=== PATIENT | female | born 1990 | race Caucasian/White ===

== ENCOUNTER → 2018-09-06 | Outpatient (REF) | payer OTHER | LOC: M LAB REF 17:50 | DX: Z12.4 Encounter for screening for malignant neoplasm of cervix (principal) ==

== ENCOUNTER → 2020-02-21 | Outpatient (REF) | payer OTHER ==
[2020-02-21 18:31] LABS: HEMATOCRIT 40.1 % (36.0-47.0); HEMOGLOBIN 12.9 g/dl (12.0-15.5); MEAN CORPUSCULAR HEMOGLOBIN 28.2 pg (27.0-33.0); MEAN CORPUSCULAR HGB CONC 32.2 g/dl (32.0-36.5); MEAN CORPUSCULAR VOLUME 87.7 fl (80.0-96.0); PLATELET COUNT, AUTOMATED 249 10^3/uL (150-450); RED BLOOD COUNT 4.57 10^6/uL (4.00-5.40); WHITE BLOOD COUNT 11.8 10^3/uL (4.0-10.0)
[2020-02-21 20:19] LABS: CHLAMYDIA DNA AMPLIFICATION NEGATIVE (NEGATIVE); GC DNA AMPLIFICATION NEGATIVE (NEGATIVE)
[2020-02-22 11:57] LABS: HIV 1&2 SCREEN CENTAUR NEGATIVE (NEGATIVE); RUBELLA IgG QUALITATIVE IMMUNE (IMMUNE)
[2020-02-23 08:55] LABS: HEPATITIS B SURFACE ANTIGEN NEGATIVE (NEGATIVE)
== END ==
LOC: M PLALAB 15:21
PROVIDERS: ATTEND Advanced Practice Midwife
DX: Z34.01 Encounter for supervision of normal first pregnancy, first trimester (principal)

== ENCOUNTER → 2020-05-23 | Outpatient (CLI) | payer BC, OTHER ==
--- NOTE | 2020-05-24 03:20 | REP ---
REASON: anatomy. PRIORS: None. Multiple ultrasonographic images of the gravid uterus show a single living intrauterine gestation in the cephalic presentation. Doppler interrogation of the heart shows a heart rate of 153 beats per minute. The placenta is posterior and not low lying. The cervix measures 3.5 cm in length and is closed. The subjective amniotic fluid volume is within normal limits. Evaluation of the maternal adnexal spaces showed no abnormalities. CHART: BPD 4.9 cm = 20 weeks 6 days HC 18.5 cm = 20 weeks 6 days AC 16.3 cm = 21 weeks 2 days FL 3.5 cm = 21 weeks 1 day The estimated weight is 408 grams, which is at the 65th percentile for a 20-week 5-day gestational age. anatomical structures seen as unremarkable are as follows: Thalami, cavum septum pellucidum, upper lip, four-chamber heart, right and left ventricular outflow tracts, stomach, cord insertion, three-vessel umbilical cord, kidneys, urinary bladder, spine, and upper and lower extremities. The posterior fossa/cerebellum were suboptimally visualized. IMPRESSION: Single living intrauterine gestation, as described above, with an estimated gestational age of 21 weeks 1 day via composite criteria and an estimated date of delivery of 10/02/2020 by today's exam. No anomalies were detected; however, I recommend a followup examination to better visualize the posterior fossa. Electronically Signed by Kel Marcano DO 05/24/2020 09:13 A
== END ==
LOC: M RAD 14:52
PROVIDERS: ATTEND Obstetrics & Gynecology
DX: Z34.92 Encounter for supervision of normal pregnancy, unspecified, second trimester (principal); Z3A.20 20 weeks gestation of pregnancy

== ENCOUNTER → 2020-06-25 | Outpatient (CLI) | payer BC ==
--- NOTE | 2020-08-09 07:04 | REP ---
FOLLOWUP OBSTETRIC ULTRASOUND FOR EVALUATION OF POSTERIOR FOSSA DATE: 06/25/2020. NOTE: Delay in reporting results from malfunction of the hospital computer system as a result of a malware attack. COMPARISON: 12/24/2019. The posterior intracranial fossa could not be optimally demonstrated on the prior study. The remainder of the anatomy was previously unremarkable. FINDINGS: On the study today, there is a single intrauterine gestation. The fetus is in a cephalic presentation. The placenta is posterior. The placenta is grade 1. There is no previa or abruptio. The umbilical cord insertion on the placenta is located centrally. The umbilical cord insertion on the fetus is unremarkable. The intracranial posterior fossa is adequately demonstrated and unremarkable on the study today. The cardiac right and left ventricular outflow tracts are not optimally demonstrated today, but were optimally seen previously and were unremarkable. The remainder of the anatomy is unremarkable today and was unremarkable previously. The composite estimated gestational age by the ultrasound today is 26 weeks, 0 days EDC is 10/01/2020. Estimated weight is 920 grams, this is the 78th percentile. Subjectively, the amniotic fluid volume is normal. Cervix measures 3.2 cm in length. No additional ultrasound evaluation is requested or performed at this time. [facility]
== END ==
LOC: M WHC 06:11
PROVIDERS: ATTEND Advanced Practice Midwife
DX: Z34.02 Encounter for supervision of normal first pregnancy, second trimester (principal); Z36.2 Encounter for other antenatal screening follow-up; Z3A.26 26 weeks gestation of pregnancy

== ENCOUNTER → 2020-09-13 | Outpatient (REF) | payer OTHER | LOC: M SFHCWAGY 16:44 | PROVIDERS: ATTEND Specialist | DX: Z34.03 Encounter for supervision of normal first pregnancy, third trimester (principal); Z3A.00 Weeks of gestation of pregnancy not specified ==

== ENCOUNTER → 2020-09-23 | Outpatient (REF) | payer OTHER | LOC: M PLALAB 14:42 | PROVIDERS: ATTEND Obstetrics & Gynecology | DX: Z3A.38 38 weeks gestation of pregnancy (principal) ==

== ENCOUNTER 2020-09-30 07:13 | Inpatient (IN) | payer BC, OTHER ==
[2020-09-30] VITALS (45 sets, daily range): BP systolic 89–134; BP diastolic 45–82
[~2020-09-30] VITALS: Ht 170.2 cm; Wt 101.6 kg
[2020-09-30] MEDS ORDERED: LACTATED RINGER'S 1000 ML IV STA (07:46)
--- NOTE | 2020-09-30 08:07 | HPEPDOC ---
Obstetrical History & Physical General Date of Admission Sep 30, 2020 at 07:46 History of Present Illness Edilma is a 29yo with SIUP at 39w2d by lmp c/w 7wk u/s presenting for regula r painful ctx. She called last night when ctx were 6-8min apart and encouraged to wait until they were closer and stronger. She states overnight they have become very regular and much more painful. No gush of fluid, no vaginal bleeding. Good movement. 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 ABDOMEN: Gravid and non-tender to touch. FETUS: Is vertex (VTX) by sterile vaginal examination (SVE) EXTREMITIES: No edema of BLE Laboratory Data 24H LABS Laboratory Tests 2 09/30/20 07:49: Serology Scanned Report Hepatitis B Testing Pertinent Laboratoy Data Blood Type: A+ RBC Antibody Screen: Negative HIV: Negative Hepatitis B: Negative Hepatitis C: Negative Rapid Plasma Reagin: Nonreactive Rubella: Immune Chlamydia/Gonorrhea: Negative Group B Streptococcus: Negative Glucose Tolerance Test: 103 Anatomy Ultrasound Ultrasound Date: Jun 25, 2020 Placenta Location: Posterior Normal Anatomy: Yes Placenta Previa: No Steroid Therapy Steroid Therapy: No Vaginal Examination Dilation: 5 cm Effacement: 90% Station: -2 Cervical Consistency: Soft Cervical Position: Anterior Presentation: Cephalic presentation Assessment Heart Rate (FHR): 120 Variability: Moderate Accelerations: Positive Decelerations: None Tocometer Contractions: Yes Frequency: regular, every 2-5 min. Duration: greater than 60 seconds Strength: palpated as moderate Assessment/Plan Assessment Edilma is a 29yo with SIUP at 39w2d by lmp c/w 7wk u/s in active labor with SCE 5/90/-2, ctx q2-3min and painful. Cat I FHRT. GBS negative. Uncomplicated PMhx and PNC. Vitals wnl, benign exam. Plan Admit and orient. Dining Room Supervisor and consent. Diet: regular for breakfast Group B Streptococcus (GBS) negative Labs and intravenous (IV) per unit protocol. Counseled on Pitocin and induction of labor (IOL). Lactated Ringers (LR): Bolus 800 mL, then at 125 mL/hr. Anticipate normal spontaneous delivery () Safe to proceed MD Rena Finney Katrina D MD Sep 30, 2020 08:07
[2020-09-30 08:38] LABS: HEMATOCRIT 38.7 % (36.0-47.0); HEMOGLOBIN 12.2 g/dl (12.0-15.5); MEAN CORPUSCULAR HEMOGLOBIN 26.2 pg (27.0-33.0); MEAN CORPUSCULAR HGB CONC 31.5 g/dl (32.0-36.5); PLATELET COUNT, AUTOMATED 230 10^3/uL (150-450); RED BLOOD COUNT 4.66 10^6/uL (4.00-5.40); WHITE BLOOD COUNT 16.1 10^3/uL (4.0-10.0)
[2020-09-30] MEDS ORDERED: FENTANYL 2MCG/ML ROPIVACAINE 0.2% IN 0.9% NACL 100ML IVBAG As Ordered ONE (09:35)
[2020-09-30] MEDS: FENTANYL/ROPIVACAINE/NACL BAG 100 ML EPIDURAL SCH ×2 (10:10→18:44)
[2020-09-30] MEDS: LR 1,000 ML IV SCH ×2 (10:22→14:54)
[2020-09-30] MEDS ORDERED: ePHEDrine SULFATE 25 MG/5 ML(5MG/ML) SYRINGE IV PRN (11:30)
[2020-09-30] MEDS ORDERED: EPIDURAL/PCA KEYS XX PRN (11:30)
[2020-09-30] MEDS ORDERED: LACTATED RINGER'S 1000 ML IV PRN (11:30)
[2020-09-30] MEDS ORDERED: ONDANSETRON 4MG/2ML VIAL IV PRN (11:30)
[2020-09-30] MEDS ORDERED: diphenhydrAMINE 50MG/ML VIAL (J1200) IV PRN (11:30)
[2020-09-30] MEDS ORDERED: REFRIGERATOR IV KEYS XX PRN (11:30)
[2020-09-30] MEDS ORDERED: NALOXONE INJ 0.4MG/1ML VIAL (J2310 PER 1MG) IV PRN (11:30)
[2020-09-30] MEDS ORDERED: EPIDURAL COMMENT XX SCH (11:30)
[2020-09-30] MEDS ORDERED: OXYTOCIN 30 UNITS IN 0.9% NaCl 500ML IV BAG (J2590) As Ordered ONE (12:35)
[2020-09-30] MEDS ORDERED: OXYTOCIN DRIP 30 UNITS in IV 1 EA IV SCH ×2 (13:45→20:58)
--- NOTE | 2020-09-30 14:06 | IPNPDOC ---
Obstetrical Progress Note Date of Service Sep 30, 2020 Subjective Patient reports that she is comfortable with her epidural running. States she feels wet. Objective Vital Signs Date Time Temp Pulse Resp B/P (MAP) Pulse Ox O2 Delivery O2 Flow Rate FiO2 09/30/20 10:37 69 16 103/54 (70) 09/30/20 09:48 98.1 Assessment Heart Rate (FHR): 130 Variability: Moderate Accelerations: Positive Decelerations: None Heart Rate Tracing: Category I Tocometer Contractions: Yes Frequency: irregular, other (6-8 min) Duration: greater than 60 seconds Strength: palpated as mild, resting tone palp/soft Sterile Vaginal Examination Dilation: 8 cm Effacement (%): 100% Station: -1 Cervical Consistency: Soft Cervical Position: Anterior Postion/Presentation: Cephalic presentation Assessment and Plan Age: 29 : 1 Term: 0 Pre-term: 0 Abortions: 0 Livin EGA at Admission: 39.2 Status: Reassuring Group B Streptococcus: Negative Anticipate: Vaginal Delivery Additional Comments Small amount of clear appearing fluid noted on bed pads on examination. AROM for moderate amount of meconium stained fluid. Start Pitocin for inadequate contraction pattern. SAVANNA CAVAZOS CNM Sep 30, 2020 14:06
--- NOTE | 2020-09-30 16:53 | IPNPDOC ---
Obstetrical Progress Note Date of Service Sep 30, 2020 Subjective Comfortable with epidural, denies feeling pressure or urge to push. Objective Vital Signs Date Time Temp Pulse Resp B/P (MAP) Pulse Ox O2 Delivery O2 Flow Rate FiO2 09/30/20 15:44 57 16 120/61 (80) 09/30/20 09:48 98.1 Assessment Heart Rate (FHR): 135 Variability: Moderate Accelerations: None Decelerations: Prolonged (One prolonged decel noted while vomitting, returned with position change, currently category 1) Heart Rate Tracing: Category I Tocometer Contractions: Yes Frequency: regular, every 2-5 min. Duration: greater than 60 seconds, less than 90 seconds Strength: palpated as mild/moderate, resting tone palp/soft Sterile Vaginal Examination Dilation: 8 cm (8-9) Effacement (%): 100% Station: -1 Cervical Consistency: Soft Cervical Position: Anterior Postion/Presentation: Cephalic presentation Assessment and Plan Age: 29 : 1 Term: 0 Pre-term: 0 Abortions: 0 Livin EGA at Admission: 39.2 Status: Reassuring Group B Streptococcus: Negative Anticipate: Vaginal Delivery Additional Comments Zofran given for vomiting, with good effect. Pitocin at 6mu/min. Continue with Pitocin augmentation Continuous EFM. SAVANNA CAVAZOS CNM Sep 30, 2020 16:53
--- NOTE | 2020-09-30 18:26 | IPNPDOC ---
Obstetrical Progress Note Date of Service Sep 30, 2020 Subjective Reports feeling increased pressure, used PCEA on epidural pump and currently comfortable. Objective Vital Signs Date Time Temp Pulse Resp B/P (MAP) Pulse Ox O2 Delivery O2 Flow Rate FiO2 09/30/20 17:44 98.4 67 16 111/64 (80) Assessment Heart Rate (FHR): 150 Variability: Moderate Accelerations: Positive Decelerations: None Heart Rate Tracing: Category I Tocometer Contractions: Yes Frequency: regular, every 1-3 min. Sterile Vaginal Examination Dilation: 9 cm (Anterior Lip) Effacement (%): 100% Station: 0 (0 to +1) Cervical Consistency: Soft Cervical Position: Anterior Postion/Presentation: Cephalic presentation Assessment and Plan Age: 29 : 1 Term: 0 Pre-term: 0 Abortions: 0 Livin EGA at Admission: 39.2 Status: Reassuring Group B Streptococcus: Negative Anticipate: Vaginal Delivery Additional Comments Pitocin at 10mu/min. Continue with Pitocin Continuous EFM per policy. SAVANNA CAVAZOS CNM Sep 30, 2020 18:26
[2020-09-30] MEDS ORDERED: RHOGAM 300 MCG (1500 IU) INJ (J2790) IM SCH (21:00)
[2020-09-30] MEDS ORDERED: DIBUCAINE 1% OINTMENT 30GM TOP PRN (21:00)
[2020-09-30] MEDS ORDERED: METHYLERGONOVINE MALEATE 0.2 MG TAB PO PRN (21:00)
[2020-09-30] MEDS ORDERED: IBUPROFEN 600MG TAB PO PRN (21:00)
[2020-09-30] MEDS ORDERED: MEASLES,MUMPS,RUBELLA VACCINE INJ (MMR-II) (90707) SC SCH (21:00)
[2020-09-30] MEDS ORDERED: ACETAMINOPHEN 500 MG TAB PO PRN (21:00)
[2020-09-30] MEDS ORDERED: DOCUSATE SODIUM 100 MG CAP PO PRN (21:00)
[2020-09-30] MEDS ORDERED: ANUSOL HC CREAM 30GM TOP PRN (21:00)
[2020-09-30] MEDS ORDERED: ACETAMINOPHEN TAB 650MG DOSE (2X325MG) PO PRN (21:00)
--- NOTE | 2020-09-30 21:20 | DNPDOC ---
[facility] Delivery Note Delivery Note DATE OF DELIVERY: 09/30/20 @ 2026 PREDELIVERY DIAGNOSIS: 39-2/7 weeks' gestation and labor. POST DELIVERY DIAGNOSIS: Delivered. PROCEDURE: Spontaneous vaginal delivery. LICENSED AIRCRAFT MAINTENANCE ENGINEER: Savanna Smith CNM, ARABELLA; NEISHA Bashir ANESTHESIA: Epidural. ESTIMATED BLOOD LOSS: 200 mL. FINDINGS: 7 pound 9ounce, 3420g, Female , Score 7/9, meconium stained fluid. DELIVERY SUMMARY: Patient is a 29-year-old 1 now para 1-0-0-1 who was admitted to labor and delivery for active labor. She received an epidural for labor pain management this morning and continued to progress. Pitocin was started for inadequate contraction pattern and AROM at 1354 for moderate meconium. She became fully dilated at 1912 and began pushing. head delivered in OA with restitution to ROT, anterior shoulder delivered with ease then corpus followed. Infant placed skin to skin on maternal abdomen. Delayed cord clamping until pulsations stopped and was clamped x2 and cut by FOB. 3 vessel cord noted. Placenta delivered intact at 2032. Fundal massage and Pitocin bolus was started. Fundus firmed at umbilicus, with moderate flow, clots swept from cervix and flow slowed to small amount. Vagina, perineum, and cervix were examined for lacerations. Small 1st degree perineal laceration was repaired with 3.0 Vicryl Rapide, with good approximation and hemostasis. Sharps and sponges counted and correct. Mother plans to breastfeed and name her "Gwen Fernández". Mother and infant left in stable condition. SAVANNA SMITH CNM Sep 30, 2020 21:20
[2020-10-01 05:36] VITALS: BP 118/62
--- NOTE | 2020-10-01 06:45 | IPNPDOC ---
Progress Note Date of Service: Oct 01, 2020 Day#: 1 Progress Note SUBJECT: Edilma is a 29-year-old 1 now Para 1-0-0-1 status post uncomplicated spontaneous vaginal delivery at 39-2/7 weeks' with post vaginal laceration and repair, doing well day # 1. She has been ambulating, voiding spontaneously without issue and tolerating regular diet. Breast feeding without issue. Reports lochia is like a normal period. Pain well controlled with Tylenol and Motrin. OBJECTIVE: VITAL SIGNS: Within normal limits, afebrile. General: Alert and oriented times three. Respiratory: Regular rate, no accessory muscle use. Abdomen: Fundus firm at U-1. Soft, NTTP. Extremities: No edema, no calf tenderness. Minimal lochia. ASSESSMENT: Day 1. PLAN: 1. Tylenol and Motrin for pain. 2. Encourage breast feeding and ambulation. 3. Patient may shower. 4. Discharge home tomorrow. VS, I&O, 24H, Fishbone Vital Signs/I&O Vital Signs Date Time Temp Pulse Resp B/P (MAP) Pulse Ox O2 Delivery O2 Flow Rate FiO2 10/01/20 05:36 97.6 79 17 118/62 (80) 97 Room Air I&O- Last 24 Hours up to 6 AM 10/01/20 06:00 Intake Total 3609 ml Output Total 1675 ml Balance 1934 ml Laboratory Data 24H LABS Laboratory Tests 2 09/30/20 07:49: Serology Scanned Report Hepatitis B Testing 09/30/20 08:05: Nucleated Red Blood Cells % (auto) 0.0, Syphilis Serology NONREACTIVE CBC/BMP Laboratory Tests 09/30/20 08:05 SAVANNA CAVAZOS CNM Oct 01, 2020 06:45
[2020-10-01] MEDS: PRENATAL VITAMINS CHEWABLE TABLET PO SCH (08:37)
[2020-10-01] MEDS: IBUPROFEN 800 MG TAB PO PRN ×2 (08:38→17:26)
[2020-10-01 18:00] VITALS: BP 126/70
[2020-10-02 05:29] VITALS: BP 120/73
[2020-10-02] MEDS: IBUPROFEN 800 MG TAB PO PRN (09:02)
[2020-10-02] MEDS: PRENATAL VITAMINS CHEWABLE TABLET PO SCH (09:02)
--- NOTE | 2020-10-02 09:03 | IPNPDOC ---
Progress Note Date of Service: Oct 02, 2020 Progress Note SUBJECT: Status post . She has been ambulating, voiding spontaneously without issue and tolerating regular diet. Lochia decreasing/minimal. Patient is ambulating well. OBJECTIVE: VITAL SIGNS: Within normal limits, afebrile. Alert and oriented times three. Abdomen: Fundus firm at U-2. Soft, NTTP. ASSESSMENT: Status post uncomplicated spontaneous vaginal delivery. Vitals within normal limits, afebrile, hemodynamically stable with no evidence of infection. PLAN: Discharge to home today. Tylenol and Motrin for pain. Routine instructions/precautions reviewed. Routine PP visit in 6 weeks in clinic. VS, I&O, 24H, Fishbone Vital Signs/I&O Vital Signs Date Time Temp Pulse Resp B/P (MAP) Pulse Ox O2 Delivery O2 Flow Rate FiO2 10/02/20 05:29 97.6 59 17 120/73 (89) 98 Room Air ETHEL HERMAN DO Oct 02, 2020 09:03
== END 2020-10-02 11:20 | disposition home or self-care (01) | DRG 560 ==
LOC: M LDO 07:13 → M LDI 07:46 → M OBS 22:40
PROVIDERS: ADMIT Advanced Practice Midwife; ATTEND Advanced Practice Midwife
PROC: 10E0XZZ Delivery of Products of Conception, External Approach (ICD-10-PCS; principal; 2020-09-30)
PROC: 0HQ9XZZ Repair Perineum Skin, External Approach (ICD-10-PCS; 2020-09-30)
PROC: 10907ZC Drainage of Amniotic Fluid, Therapeutic from Products of Conception, Via Natural or Artificial Opening (ICD-10-PCS; 2020-09-30)
DX: O77.0 Labor and delivery complicated by meconium in amniotic fluid (principal); Z3A.39 39 weeks gestation of pregnancy; O70.0 First degree perineal laceration during delivery; Z37.0 Single live birth

== ENCOUNTER → 2023-12-02 | Outpatient (CLI) | payer BC, OTHER ==
[2023-12-02 15:39] LABS: HEMATOCRIT 33.7 % (36.0-47.0); HEMOGLOBIN 10.9 g/dl (12.0-15.5); MEAN CORPUSCULAR HGB CONC 32.3 g/dl (32.0-36.5); MEAN CORPUSCULAR VOLUME 83.4 fl (80.0-96.0); PLATELET COUNT, AUTOMATED 218 10^3/uL (150-450); RED BLOOD COUNT 4.04 10^6/uL (4.00-5.40); WHITE BLOOD COUNT 13.3 10^3/uL (4.0-10.0)
[2023-12-02 16:01] LABS: TOTAL PROTEIN,RANDOM URINE 12.2 MG/DL (0.0-14.0)
[2023-12-02 16:05] LABS: LDH LACTATE DEHYDROGENASE 180 U/L (120-246)
[2023-12-02 16:06] LABS: ALT/SGPT 9 U/L (7.0-40); AST/SGOT 11 U/L (<34); BILIRUBIN,TOTAL 0.3 MG/DL (0.3-1.2); CREATININE FOR GFR 0.56 MG/DL (0.55-1.30); GLOMERULAR FILTRATION RATE > 60.0 (>60)
== END ==
LOC: M PLALAB 14:41
PROVIDERS: ATTEND Obstetrics & Gynecology
DX: O16.9 Unspecified maternal hypertension, unspecified trimester (principal); Z3A.00 Weeks of gestation of pregnancy not specified

== ENCOUNTER → 2023-12-17 | Outpatient (REF) | payer BC, OTHER | LOC: M SFHCWAGY 16:39 | PROVIDERS: ATTEND Advanced Practice Midwife | DX: Z34.83 Encounter for supervision of other normal pregnancy, third trimester (principal) ==

== ENCOUNTER 2024-01-06 16:18 | Inpatient (IN) | payer BC, OTHER ==
[2024-01-06] VITALS (17 sets, daily range): BP systolic 111–181; BP diastolic 58–118
[~2024-01-06] VITALS: Ht 172.7 cm; Wt 100.3 kg
[2024-01-06] MEDS ORDERED: UNIS25TA3 PO (16:39)
[2024-01-06] MEDS ORDERED: ACET-897 PO (16:39)
[2024-01-06] MEDS ORDERED: TUMS500C PO (16:39)
[2024-01-06] MEDS ORDERED: OMEP10CASR PO (16:39)
[2024-01-06] MEDS ORDERED: PRENTAB9 PO (16:39)
[2024-01-06] MEDS ORDERED: HOME MED LIST COMPLETE! XX SCH (16:45)
[2024-01-06 18:24] LABS: HEMATOCRIT 32.6 % (36.0-47.0); HEMOGLOBIN 10.3 g/dl (12.0-15.5); MEAN CORPUSCULAR HEMOGLOBIN 25.6 pg (27.0-33.0); MEAN CORPUSCULAR HGB CONC 31.6 g/dl (32.0-36.5); MEAN CORPUSCULAR VOLUME 80.9 fl (80.0-96.0); PLATELET COUNT, AUTOMATED 183 10^3/uL (150-450); RED BLOOD COUNT 4.03 10^6/uL (4.00-5.40); WHITE BLOOD COUNT 11.6 10^3/uL (4.0-10.0)
[2024-01-06 18:47] LABS: TOTAL PROTEIN,RANDOM URINE 73.6 MG/DL (0.0-14.0)
[2024-01-06 18:52] LABS: CREATININE,RANDOM URINE 182.6 MG/DL
[2024-01-06 18:53] LABS: ALBUMIN 2.4 G/DL (3.2-5.2); ALKALINE PHOSPHATASE 208 U/L (46-116); ALT/SGPT 9 U/L (7.0-40); AST/SGOT 13 U/L (<34); BILIRUBIN,TOTAL 0.4 MG/DL (0.3-1.2); BLOOD UREA NITROGEN 11 MG/DL (9-23); CALCIUM LEVEL 8.9 MG/DL (8.5-10.1); CARBON DIOXIDE LEVEL 23 MMOL/L (20-31); CHLORIDE LEVEL 104 MMOL/L (98-107); CREATININE FOR GFR 0.58 MG/DL (0.55-1.30); GLOMERULAR FILTRATION RATE > 60.0 (>60); GLUCOSE, FASTING 71 MG/DL (60-100); POTASSIUM SERUM 3.8 MMOL/L (3.5-5.1); SODIUM LEVEL 135 MMOL/L (136-145); TOTAL PROTEIN 5.9 G/DL (5.7-8.2)
[2024-01-06] MEDS ORDERED: OXYTOCIN DRIP 30 UNITS in IV 1 EA IV PRN (21:00)
[2024-01-06] MEDS ORDERED: TRANEXAMIC ACID INJection 1,000 MG in NS 100 ML IV PRN (21:00)
[2024-01-06] MEDS ORDERED: LACTATED RINGER'S 1000 ML IV PRN (21:00)
[2024-01-06] MEDS ORDERED: METHYLERGONOVINE MALEATE 0.2MG/ML 1ML VIAL IM PRN (21:00)
[2024-01-06] MEDS ORDERED: CARBOPROST TROMETHAMINE 250 MCG/ML AMP IM PRN (21:00)
[2024-01-06] MEDS: diphenhydrAMINE 25MG CAP PO SCH (22:24)
[2024-01-06] MEDS: LR 1,000 ML IV SCH (22:24)
[2024-01-06] MEDS: ACETAMINOPHEN 500 MG TAB PO PRN (22:24)
[2024-01-06] MEDS: OXYTOCIN DRIP 30 UNITS in IV 1 EA IV SCH (22:30)
[2024-01-07] VITALS (67 sets, daily range): BP systolic 82–157; BP diastolic 46–94; O2SAT 97–98
[2024-01-07] MEDS ORDERED: NALOXONE INJ 0.4MG/1ML VIAL IV PRN (03:00)
[2024-01-07] MEDS ORDERED: diphenhydrAMINE 50MG/ML VIAL IV PRN (03:00)
[2024-01-07] MEDS ORDERED: ePHEDrine SULFATE 25 MG/5 ML(5MG/ML) SYRINGE IVP PRN (03:00)
[2024-01-07] MEDS ORDERED: EPIDURAL/PCA KEYS XX PRN (03:00)
[2024-01-07] MEDS ORDERED: LR 500 ML IV PRN (03:00)
[2024-01-07] MEDS: PENICILLIN G POTASSIUM 5 MU IV 5 MU in D5W MINI-BAG PLUS 100 ML IV STA (05:25)
[2024-01-07] MEDS: FENTANYL/ROPIVACAINE/NACL BAG 100 ML EPIDURAL SCH (06:58)
[2024-01-07] MEDS: ONDANSETRON 4MG 2ML VIAL IV PRN (07:27)
[2024-01-07] MEDS: PEN G POT 3,000,000 UNIT/50 ML 3,000,000 UNIT in IV 1 EA IV SCH (09:24)
[2024-01-07] MEDS: OXYTOCIN DRIP 30 UNITS in IV 1 EA IV PRN (20:02)
[2024-01-07] MEDS ORDERED: ANUSOL HC CREAM 30GM TOP PRN (20:25)
[2024-01-07] MEDS ORDERED: ACETAMINOPHEN TAB 650MG DOSE (2X325MG) PO PRN (20:25)
[2024-01-07] MEDS ORDERED: IBUPROFEN 600MG TAB PO PRN (20:25)
[2024-01-07] MEDS ORDERED: RHOGAM 300MCG (1500IU) INJ IM SCH (20:25)
[2024-01-07] MEDS: ACETAMINOPHEN 500 MG TAB PO PRN (22:33)
[2024-01-07] MEDS: AMPICILLIN SOD/SULBACTAM SOD 3 GM in D5W MINI-BAG PLUS 100 ML IV ONE (23:06)
[2024-01-08 06:00] VITALS: BP 119/73; O2SAT 97
[2024-01-08] MEDS: DOCUSATE SODIUM 100MG CAPSULE PO PRN (08:56)
[2024-01-08] MEDS: PRENATAL VITAMINS CHEWABLE TABLET PO SCH (08:56)
[2024-01-08] MEDS: DIBUCAINE 1% OINTMENT 30GM TOP PRN (08:56)
[2024-01-08] MEDS: IBUPROFEN 800 MG TAB PO PRN (16:53)
[2024-01-08 18:00] VITALS: BP 126/59; O2SAT 100
[2024-01-09 05:15] VITALS: BP 125/74; O2SAT 98
[2024-01-09 08:37] VITALS: O2SAT 98
[2024-01-09] MEDS ORDERED: MEASLES,MUMPS,RUBELLA VACCINE INJ (MMR-II) SC.IMMUN ONE (09:00)
== END 2024-01-09 12:48 | disposition home or self-care (01) | DRG 541 ==
LOC: M LDO 16:18 → M LDI 19:00 → M OBS 01-07 21:45
PROVIDERS: ADMIT Obstetrics & Gynecology; ATTEND Advanced Practice Midwife
PROC: 3E033VJ Introduction of Other Hormone into Peripheral Vein, Percutaneous Approach (ICD-10-PCS; 2024-01-06)
PROC: 10E0XZZ Delivery of Products of Conception, External Approach (ICD-10-PCS; principal; 2024-01-07)
PROC: 10D17Z9 Manual Extraction of Products of Conception, Retained, Via Natural or Artificial Opening (ICD-10-PCS; 2024-01-07)
PROC: 10907ZC Drainage of Amniotic Fluid, Therapeutic from Products of Conception, Via Natural or Artificial Opening (ICD-10-PCS; 2024-01-07)
DX: O14.04 Mild to moderate pre-eclampsia, complicating childbirth (principal); O69.81X0 Labor and delivery complicated by cord around neck, without compression, not applicable or unspecified; Z3A.38 38 weeks gestation of pregnancy; O73.0 Retained placenta without hemorrhage; O69.89X0 Labor and delivery complicated by other cord complications, not applicable or unspecified; Z37.0 Single live birth; O32.6XX0 Maternal care for compound presentation, not applicable or unspecified; O99.824 Streptococcus B carrier state complicating childbirth